=== PATIENT | female | born 1950 | race African-American/Black ===

== ENCOUNTER 2017-07-19 12:15 | Emergency (ER) | payer BC | END 2017-07-19 14:22 | disposition home or self-care (01) | LOC: ERS 12:15 | DX: S39.012A Strain of muscle, fascia and tendon of lower back, initial encounter (principal); I10 Essential (primary) hypertension; Z79.899 Other long term (current) drug therapy; Z79.82 Long term (current) use of aspirin; X50.1XXA Overexertion from prolonged static or awkward postures, initial encounter | CPT/HCPCS: 99283 ==

== ENCOUNTER 2018-11-13 22:54 | Emergency (ER) | payer BC | END 2018-11-13 23:37 | disposition home or self-care (01) | LOC: ERS 22:54 | DX: S43.421A Sprain of right rotator cuff capsule, initial encounter (principal); I10 Essential (primary) hypertension; Z79.82 Long term (current) use of aspirin; X58.XXXA Exposure to other specified factors, initial encounter | CPT/HCPCS: 99283 ==